=== PATIENT | male | born 1930 | race Caucasian/White ===

== ENCOUNTER 2018-12-11 05:30 | Day surgery (SDC) | payer MEDICARE ==
[2018-12-04 17:32] LABS: BASOPHILS # (AUTO) 0.1 X10'3 (0-0.2); BASOPHILS % (AUTO) 1.2 % (0-1); EOSINOPHILS # (AUTO) 0.1 X10'3 (0-0.9); EOSINOPHILS % (AUTO) 1.5 % (0-6); LYMPHOCYTES % (AUTO) 21.8 % (21-51); MEAN CORPUSCULAR HEMOGLOBIN 29.3 PG (27.0-31.0); MEAN CORPUSCULAR VOLUME 88.7 FL (78-98); MEAN PLATELET VOLUME 8.3 FL (7.4-10.4); MONOCYTES # (AUTO) 0.6 X10'3 (0-0.9); MONOCYTES % (AUTO) 12.2 % (2-12); NEUTROPHILS % (AUTO) 63.3 % (42-75); PRE OP HEMATOCRIT 37.6 % (42.0-52.0); PRE OP HEMOGLOBIN 12.4 g/dL (14.0-17.9); PRE OP PLATELET COUNT 192 X10'3 (140-440); RED BLOOD COUNT 4.25 X10'6 (4.70-6.10); RED CELL DISTRIBUTION WIDTH 16.3 % (11.5-14.5)
[2018-12-04 17:43] LABS: ALBUMIN 3.4 G/DL (3.4-5.0); ALBUMIN/GLOBULIN RATIO 1.1 (1.1-1.5); ALKALINE PHOSPHATASE 62 IU/L (46-116); BLOOD UREA NITROGEN 24 MG/DL (7-18); BUN/CREATININE RATIO 21.8 (5.4-32.0); CHLORIDE 105 MMOL/L (99-107); PRE OP ALT 20 U/L (30-65); PRE OP ANION GAP 8 (8-16); PRE OP AST 20 U/L (10-37); PRE OP BILIRUB, TOTAL 0.4 MG/DL (0.0-1.0); PRE OP GLUCOSE 101 MG/DL (70-104); PRE OP POTASSIUM 4.3 MMOL/L (3.4-5.1); PRE OP SODIUM 138 MMOL/L (135-145); TOTAL CARBON DIOXIDE 25.5 MMOL/L (24-32); TOTAL PROTEIN 6.6 G/DL (6.4-8.2); eGFR 63 ML/MIN
[2018-12-04 17:46] LABS: PRE OP PROTIME 25.5 SECONDS (9.0-12.0)
[2018-12-04 17:47] LABS: PRE OP INR 2.6 INR
[2018-12-11] VITALS (17 sets, daily range): BP systolic 88–128; BP diastolic 41–76
[~2018-12-11] VITALS: Ht 182.9 cm; Wt 69.0 kg
[~2018-12-11 05:30] MED LIST: ALFU10TA PO; ASPI-611 PO; CHOL10002 PO; COU7.5T PO; DILT180C PO; FINA5TAB11 PO; LACT30003 PO; LEVO125T8 PO; SILD100T PO; WARF-55 PO; famotidine 20mg tablet PO ONE; gentamicin inj 240 MG in normal saline 100ml IV soln 94 ML IV ONE; ringers solution, lacted 1,000 ML IV SCH
[2018-12-11] MEDS ORDERED: ampicillin inj 1 GM in normal saline 100ml IV soln 100 ML IV ONE (06:00)
[2018-12-11] MEDS ORDERED: LIDOcaine 1% (10mg/ml) 2ml vial ONE (06:01)
[2018-12-11] MEDS ORDERED: neomy sulf/polymyxin B sulf. GU irrigation 1ml amp IR ONE (06:39)
[2018-12-11 07:11] LABS: INR 1.1 INR; PRE OP PARTIAL THROMB. TIME 27 SECONDS (22-32); PROTHROMBIN TIME 11.3 SECONDS (9.0-12.0)
[2018-12-11] MEDS ORDERED: ringers solution, lacted 1,000 ML IV SCH (07:22)
[2018-12-11] MEDS ORDERED: fentaNYL/PF 50MCG/1 ML 2ML syringe IV PRN ×2 (07:25)
[2018-12-11] MEDS ORDERED: hydrALAZINE 20mg/ml inj. IV PRN (07:25)
[2018-12-11] MEDS ORDERED: morphine 4 MG/ML inj SYRINge IV PRN ×2 (07:25)
[2018-12-11] MEDS ORDERED: labetalol 20mg/4ml (5mg/ml) syringe IV PRN (07:25)
[2018-12-11] MEDS ORDERED: ondansetron/PF 4mg/2ml inj IV PRN ×2 (07:25→09:50)
[2018-12-11] MEDS ORDERED: fentaNYL/PF 50MCG/1 ML 2ML syringe ONE (07:35)
[2018-12-11] MEDS ORDERED: MIDAZolam 5mg/5ml vial ONE (07:35)
--- NOTE | 2018-12-11 09:42 | NUR ---
Received from OR via , accompanied by Anesthesiologist DR ACUNA and report given by Anesthesiolgist. AWAKE AND [place] PAIN. VITALS STABLE. CBI WITH PINK CLEAR URINE FLOWWING. SENSATION AT HIPS.
[2018-12-11] MEDS ORDERED: mag hydrox/Alum hydrox/simeth 30ml oral suspension PO PRN (09:50)
[2018-12-11] MEDS ORDERED: proCHLORperazine 10 MG/2 ml inj IV PRN (09:50)
[2018-12-11] MEDS ORDERED: oxybutynin 5mg tablet PO PRN (09:50)
[2018-12-11] MEDS ORDERED: acetaminophen 325mg tablet PO PRN (09:50)
[2018-12-11] MEDS ORDERED: zolpidem 5mg tablet PO PRN (09:50)
[2018-12-11] MEDS ORDERED: LACTASE 9000 UNIT PO PRN (09:50)
[2018-12-11] MEDS ORDERED: HYDROcodone/acetaminophen 10/325mg tab PO PRN (10:00)
--- NOTE | 2018-12-11 10:42 | NUR ---
Report called to receiving nurse. Transferred via BED Belongings . Special Issues communicated to receiving nurse. AWAKE AND ORIENTED. VITALS STABLE. [place] PAIN. CBI WITH DEVORAH COLORED URINE. TO SURGICAL RM 346A AT THIS TIME.
--- NOTE | 2018-12-11 11:15 | NUR ---
Received from pacu, report from Lazaro. Oriented pt to room, unit, and plan of care. CBI infusing with pink urine draining, no clots. Denies pain.
[2018-12-11] MEDS: potassium cl 20mEq in 1/2 NS 1,000 ML IV SCH ×3 (11:43→21:03)
[2018-12-11] MEDS: ceFAZolin 1GM/D5W- ADD-VANTAGE 50 ML IV SCH ×2 (15:14→23:54)
[2018-12-11] MEDS ORDERED: ceFAZolin inj. 1,000 MG in dextrose 5%-water 50ml 50 ML IV SCH (16:00)
--- NOTE | 2018-12-11 18:00 | NUR ---
Received report from Eleni LUU pt is awake and alert on 2L of O2 via NC in no apparent distress, CBI running
--- NOTE | 2018-12-11 18:04 | NUR ---
Problems reprioritized. Patient report given, questions answered & plan of care reviewed with TALON.
[2018-12-11] MEDS ORDERED: tamsulosin 0.4mg capsule PO SCH (21:00)
[2018-12-11] MEDS ORDERED: levoTHYROXINE 100mcg tablet PO SCH (21:00)
[2018-12-11] MEDS: docusate sod 100mg capsule PO SCH (21:02)
--- NOTE | 2018-12-11 21:38 | NUR ---
2100 checked in on pt, pt states his R. foot was bothering him, so I removed the SCD and MOIRA hose to see if he found relief from those being removed, will continue to monitor
[2018-12-12] VITALS: BP 122/47
[2018-12-12] MEDS: potassium cl 20mEq in 1/2 NS 1,000 ML IV SCH ×2 (05:29→13:40)
--- NOTE | 2018-12-12 06:20 | NUR ---
Patient in room [facility]. I have received report from JUS Presley and had the opportunity to ask questions and assume patient care.
--- NOTE | 2018-12-12 06:26 | NUR ---
Gave report to Cori LUU pt is resting on 2L of O2 via NC in no apparent distress, CBI running
[2018-12-12 06:41] LABS: ALBUMIN 2.5 G/DL (3.4-5.0); ANION GAP 3 (8-16); BLOOD UREA NITROGEN 13 MG/DL (7-18); BUN/CREATININE RATIO 13.7 (5.4-32.0); CALCIUM 8.5 MG/DL (8.5-10.1); CHLORIDE 108 MMOL/L (99-107); CREATININE 0.95 MG/DL (0.60-1.10); GLUCOSE 81 MG/DL (70-104); POTASSIUM 4.3 MMOL/L (3.5-5.1); SODIUM 140 MMOL/L (135-145); TOTAL CARBON DIOXIDE 29.4 MMOL/L (24-32); eGFR 75 ML/MIN
[2018-12-12 06:54] LABS: BASOPHILS % (AUTO) 0.7 % (0-1); EOSINOPHILS # (AUTO) 0.1 X10'3 (0-0.9); EOSINOPHILS % (AUTO) 2.4 % (0-6); HEMATOCRIT 33.1 % (42.0-52.0); HEMOGLOBIN 11.1 g/dl (14.0-17.9); LYMPHOCYTES # (AUTO) 1.1 X10'3 (1.1-4.8); LYMPHOCYTES % (AUTO) 21.6 % (21-51); MEAN CORPUSCULAR HEMOGLOBIN 30.3 PG (27.0-31.0); MEAN CORPUSCULAR HGB CONC 33.6 g/dL (33.0-36.5); MEAN CORPUSCULAR VOLUME 90.3 FL (78-98); MEAN PLATELET VOLUME 8.9 FL (7.4-10.4); MONOCYTES # (AUTO) 0.6 X10'3 (0-0.9); MONOCYTES % (AUTO) 11.2 % (2-12); NEUTROPHILS # (AUTO) 3.3 X10'3 (1.8-7.7); NEUTROPHILS % (AUTO) 64.1 % (42-75); PLATELET COUNT 141 X10'3 (140-440); RED BLOOD COUNT 3.66 X10'6 (4.70-6.10); WHITE BLOOD COUNT 5.2 X10'3 (4.5-11.0)
[2018-12-12] MEDS: ceFAZolin 1GM/D5W- ADD-VANTAGE 50 ML IV SCH (07:29)
[2018-12-12] MEDS: docusate sod 100mg capsule PO SCH (07:30)
[2018-12-12] MEDS ORDERED: pantoprazole 40mg Tablet.DR PO SCH (07:30)
[2018-12-12 08:00] VITALS: BP 104/51
[2018-12-12] MEDS ORDERED: finasteride 5mg tablet PO SCH (08:00)
[2018-12-12] MEDS ORDERED: alfuzosin 10MG TAB.SR.24H PO SCH (08:00)
[2018-12-12] MEDS ORDERED: diltiazem CD 180mg cap (once-daily) PO SCH (08:00)
[2018-12-12 11:46] VITALS: BP 97/53
[2018-12-12] MEDS ORDERED: DOCU-28 PO (13:51)
--- NOTE | 2018-12-12 15:45 | NUR ---
Patient discharged home via spouse and taken from unit via wheelchair and x1 staff. Patient alert, oriented and in no apparent distress at this time. PIV removed and bleeding under control. Patient took all belongings with him including discharge instructions. Patient and spouse were given time for questions and answers and both stated an understanding of the teaching. patient sent home with boothe catheter in place. Patient boothe catheter changed to a leg bag and was given a new large volume bag to switch to at night. Patient stated feeling confident about changing the bag and how to care for it. Patient stated that he has an appointment set up with Dr. Anderson.
== END 2018-12-12 15:41 | disposition home or self-care (01) ==
LOC: PAS 05:30 → SUR 3N 11:12 → PAS 12-12 15:41
PROVIDERS: ATTEND Urology
DX: N32.0 Bladder-neck obstruction (principal); I48.91 Unspecified atrial fibrillation; Z91.013 Allergy to seafood; Z91.09 Other allergy status, other than to drugs and biological substances; Z79.899 Other long term (current) drug therapy; Z87.440 Personal history of urinary (tract) infections; F17.210 Nicotine dependence, cigarettes, uncomplicated
CPT/HCPCS: 36415; 52601; 71046; 80048; 80053; 82948; 84443; 85025; 85610; 85730; 86885; 86900; 86901; 87070; J0290; J0690; J1580; J2250; J3010; J3490; J7120; 88305; A4346; A4615; G0378; J7030; J7060